=== PATIENT | male | born 1965 | race Caucasian/White ===

== ENCOUNTER 2017-11-13 17:57 | Inpatient (IN) ==
[2017-11-13] MEDS ORDERED: Bacitracin OINT PKT TP STA (18:18)
--- NOTE | 2017-11-13 18:27 | Emergency Department Note ---
Disposition Clinical Impression: Ulcer, Methamphetamine abuse, Medical clearance for psychiatric admission Disposition: Still a Patient Condition: Undetermined Referrals: Jamey Duffy MD [Primary Care Provider] - Forms: ED Satisfaction Letter General Adult HPI - General Chief complaint: ED Wound/Laceration Stated complaint: "bugs in arms/neck" Time Seen by Provider: 11/13/17 18:07 Source: patient Mode of arrival: ambulatory Limitations: altered mental status Nursing Notes Reviewed: Yes Vital Signs Reviewed: Yes - History of Present Illness HPI Narrative: 52-year-old male with history of previous psychiatric disorders and admission to psychiatric services, arrives to the emergency department complaining of wounds of bilateral arms and hands. The patient has been stating that he has smoked methamphetamines 2 days ago. The patient is been picking at bilateral upper surety since then. He is source of bilateral arms associated with this. He is stating that bugs are coming out of his arms. Patient denies any other complaints at this time include chest pain, difficulty breathing, suicidal ideation. He is resting comfortably in the room but is fairly and see in the room and is restless. Pain Scale: 0 - Related Data Home Medications Medication Instructions Recorded Confirmed Pregabalin [Lyrica] 50 mg PO TID 03/11/16 08/20/16 Cyclobenzaprine HCl 10 mg PO BID 08/20/16 08/20/16 Furosemide [Lasix] 20 mg PO DAILY 08/20/16 08/20/16 Gabapentin [Neurontin] 400 mg PO TID 08/20/16 08/20/16 HYDROcodone/Acet 5/325 mg [[place] 1 tab PO Q8H PRN 08/20/16 08/20/16 5-325 mg] Nicotine Patch [Nicoderm] 21 mg TD DAILY 08/20/16 08/20/16 Previous Rx's Medication Instructions Recorded OxyCODONE Immed Rel [Roxicodone 5 5 mg PO Q4HR PRN #60 tablet 08/21/16 MG] Allergies Allergy/AdvReac Type Severity Reaction Status Date / Time No Known Allergies Allergy Verified 08/20/16 09:49 All systems ED: reviewed and negative except as stated. Constitutional: Denies: fever, chills, weakness ENT ED: Denies: congestion Cardiovascular: Denies: chest pain Respiratory: Denies: dyspnea Gastrointestinal: Denies: abdominal pain Genitourinary: Denies: urgency, dysuria Musculoskeletal: Denies: back pain Integumentary: Reports: lesions. Denies: rash Neurological: Denies: headache Psychiatric: Reports: visual hallucinations. Denies: anxiety, depression, suicidal thoughts, homicidal thoughts, auditory hallucinations Past Medical History - Past Medical History Attestation: Yes The following information was validated with the patient. Source: patient Medical history: Reports: migraine Surgical history: Reports: orthopedic, other Psychiatric history: Reports: anxiety, depression, prior suicide attempt, previous psychiatric hospitalization - Social History Smoking Status: Former smoker Smokeless Tobacco Status: No Alcohol use: Reports: rarely Drug use: Reports: methamphetamine, prescription drug abuse Physical Exam - General Limitations: no limitations General appearance: alert, in no apparent distress, anxious - Head Head exam: atraumatic, normocephalic, normal inspection - Eye Eye exam: Present: normal appearance, PERRL, EOMI - ENT ENT exam: normal exam, normal oropharynx, mucous membranes moist - Neck Neck exam: Present: normal inspection, full ROM, trachea midline - Chest Chest inspection: Present: normal inspection, symmetric chest wall rise - Respiratory Respiratory exam: Present: normal lung sounds bilaterally - Cardiovascular Cardiovascular exam: Present: regular rate, normal rhythm, normal heart sounds - Abdominal Exam Abdominal exam: Present: soft, Non-Tender. Absent: tenderness, distention, guarding, rebound, rigidity - Extremities Exam Extremities exam: Present: full ROM, other (Patient has superficial lesions from what appears to be the patient picking at bilateral upper extremities. No active bleeding. No obvious signs of infection.). Absent: tenderness - Neurological Exam Neurological exam: Present: alert, oriented X3 - Psychiatric Psychiatric exam: Present: anxious, manic. Absent: normal affect, normal mood, depressed, homicidal ideation, suicidal ideation - Skin Skin exam: Present: warm, dry, normal color Course Vital Signs Temperature 97.9 F 11/13/17 17:59 Pulse Rate 88 11/13/17 17:59 Respiratory Rate 18 11/13/17 17:59 Blood Pressure 204/145 11/13/17 17:59 O2 Sat by Pulse Oximetry 96 11/13/17 17:59 Temperature 97.9 F 11/13/17 17:59 Pulse Rate 88 11/13/17 17:59 Respiratory Rate 18 11/13/17 17:59 Blood Pressure 204/145 11/13/17 17:59 O2 Sat by Pulse Oximetry 96 11/13/17 17:59 Oxygen Delivery Oxygen Delivery Room Air
--- NOTE | 2017-11-13 18:39 | Emergency Department Note ---
Disposition Clinical Impression: Ulcer, Methamphetamine abuse, Medical clearance for psychiatric admission Disposition: Still a Patient Condition: Undetermined Referrals: Jamey Duffy MD [Primary Care Provider] - Forms: ED Satisfaction Letter General Adult HPI - General Chief complaint: ED Wound/Laceration Stated complaint: "bugs in arms/neck" Time Seen by Provider: 11/13/17 18:07 Source: patient Mode of arrival: ambulatory Limitations: no limitations - History of Present Illness Pain Scale: 0 - Related Data Home Medications Medication Instructions Recorded Confirmed Pregabalin [Lyrica] 50 mg PO TID 03/11/16 08/20/16 Cyclobenzaprine HCl 10 mg PO BID 08/20/16 08/20/16 Furosemide [Lasix] 20 mg PO DAILY 08/20/16 08/20/16 Gabapentin [Neurontin] 400 mg PO TID 08/20/16 08/20/16 HYDROcodone/Acet 5/325 mg [[place] 1 tab PO Q8H PRN 08/20/16 08/20/16 5-325 mg] Nicotine Patch [Nicoderm] 21 mg TD DAILY 08/20/16 08/20/16 Previous Rx's Medication Instructions Recorded OxyCODONE Immed Rel [Roxicodone 5 5 mg PO Q4HR PRN #60 tablet 08/21/16 MG] Allergies Allergy/AdvReac Type Severity Reaction Status Date / Time No Known Allergies Allergy Verified 08/20/16 09:49 Constitutional: Denies: fever, chills, weakness ENT ED: Denies: congestion Cardiovascular: Denies: chest pain Respiratory: Denies: dyspnea Gastrointestinal: Denies: abdominal pain Genitourinary: Denies: urgency, dysuria Musculoskeletal: Denies: back pain Integumentary: Reports: lesions. Denies: rash Neurological: Denies: headache Psychiatric: Reports: visual hallucinations. Denies: anxiety, depression, suicidal thoughts, homicidal thoughts, auditory hallucinations Past Medical History - Past Medical History Medical history: Reports: migraine Surgical history: Reports: orthopedic, other Psychiatric history: Reports: anxiety, depression, prior suicide attempt, previous psychiatric hospitalization - Social History Smoking Status: Former smoker Smokeless Tobacco Status: No Alcohol use: Reports: rarely Drug use: Reports: methamphetamine, prescription drug abuse Physical Exam - General Limitations: no limitations General appearance: alert, in no apparent distress, anxious Course Vital Signs Temperature 97.9 F 11/13/17 17:59 Pulse Rate 88 11/13/17 17:59 Respiratory Rate 18 11/13/17 17:59 Blood Pressure 204/145 11/13/17 17:59 O2 Sat by Pulse Oximetry 96 11/13/17 17:59 Temperature 97.9 F 11/13/17 17:59 Pulse Rate 88 11/13/17 17:59 Respiratory Rate 18 11/13/17 17:59 Blood Pressure 204/145 11/13/17 17:59 O2 Sat by Pulse Oximetry 96 11/13/17 17:59 Oxygen Delivery Oxygen Delivery Room Air Medical Decision Making - Lab Data Result diagrams: 11/13/17 18:31 Lab Results 11/13/17 Range/Units 18:31 WBC 9.8 (4.3-11.1) K/mcL RBC 4.35 (4.19-5.50) M/mcL Hgb 14.2 (12.9-16.9) g/dL Hct 41.7 (37.5-50.1) % MCV 95.9 (83.0-100.0) fL MCH 32.6 (28.0-33.3) pg MCHC 34.1 (31.6-35.5) g/dL RDW 12.8 (11.5-14.5) % Plt Count 322 (140-400) K/mcL MPV 9.1 L (9.4-12.4) fL Immature Gran % 0.4 (0-4) % Seg Neutrophils % 61.2 % Lymphocytes % 23.4 % Monocytes % 12.2 % Eosinophils % 2.4 % Basophils % 0.4 % Neutrophils # 6.0 (1.6-8.9) K/mcL Lymphocytes # 2.3 (0.6-4.6) K/mcL Monocytes # 1.2 (0.0-1.3) K/mcL Eosinophils # 0.2 (0.0-0.6) K/mcL Basophils # 0.0 (0.0-0.2) K/mcL Attestation Statement - Attestation Attestation: I examined this patient and my medical decision-making was reviewed with the DECISION SCIENCE ANALYST/PA/Advanced Practice Nurse/Resident Physician. I agree with the documented findings, disposition and treatment plan as described except to the extent set forth below. Patient is resting comfortably on the bed, speaking conversationally, initial blood pressure elevated and will be rechecked, patient does admit to smoking methamphetamine several days ago. Has been picking his skin but I do not see signs of abscess at this time. Labs are pending. Care will be assumed by the night physician. 183
[2017-11-13 18:50] LABS: Basophils % 0.4 %; Eosinophils # 0.2 K/mcL (0.0-0.6); Eosinophils % 2.4 %; Hematocrit 41.7 % (37.5-50.1); Hemoglobin 14.2 g/dL (12.9-16.9); Immature Granulocytes % 0.4 % (0-4); Lymphocytes # 2.3 K/mcL (0.6-4.6); Lymphocytes % 23.4 %; Mean Corpuscular HGB Conc 34.1 g/dL (31.6-35.5); Mean Corpuscular Hemoglobin 32.6 pg (28.0-33.3); Mean Corpuscular Volume 95.9 fL (83.0-100.0); Mean Platelet Volume 9.1 fL (9.4-12.4); Monocytes # 1.2 K/mcL (0.0-1.3); Monocytes % 12.2 %; Platelet Count 322 K/mcL (140-400); Red Blood Count 4.35 M/mcL (4.19-5.50); Red Cell Distribution Width 12.8 % (11.5-14.5); Segmented Neutrophils % 61.2 %
[2017-11-13] MEDS ORDERED: hydrALAZINE 10 MG TABLET PO ONE (19:03)
[2017-11-13 19:12] LABS: Acetaminophen < 10 mcg/mL (10-20); BUN/Creatinine Ratio 17 (6-26); Blood Urea Nitrogen 15 mg/dL (6-20); Calcium 9.5 mg/dL (8.6-10.3); Carbon Dioxide 26 mEq/L (23-29); Chloride 103 mEq/L (98-107); Ethanol < 10 mg/dL (Less than 10); Glucose 103 mg/dL (70-105); Osmolality,Calculated 287 (280-300); Potassium 3.5 mEq/L (3.5-5.1); Salicylate < 2.5 mg/dL (15.0-30.0); Sodium 138 mEq/L (136-145); eGFR For African Americans > 60 (> 60); eGFR For Non-African Americans > 60 (> 60)
--- NOTE | 2017-11-13 19:29 | Emergency Department Note ---
Disposition Clinical Impression: Ulcer, Methamphetamine abuse, Medical clearance for psychiatric admission Disposition: Still a Patient Condition: Undetermined Referrals: Jamey Duffy MD [Primary Care Provider] - Forms: ED Satisfaction Letter General Adult HPI - General Chief complaint: ED Wound/Laceration Stated complaint: "bugs in arms/neck" Time Seen by Provider: 11/13/17 18:07 Source: patient Mode of arrival: ambulatory Limitations: no limitations - History of Present Illness Pain Scale: 0 - Related Data Home Medications Medication Instructions Recorded Confirmed Pregabalin [Lyrica] 50 mg PO TID 03/11/16 08/20/16 Cyclobenzaprine HCl 10 mg PO BID 08/20/16 08/20/16 Furosemide [Lasix] 20 mg PO DAILY 08/20/16 08/20/16 Gabapentin [Neurontin] 400 mg PO TID 08/20/16 08/20/16 HYDROcodone/Acet 5/325 mg [[place] 1 tab PO Q8H PRN 08/20/16 08/20/16 5-325 mg] Nicotine Patch [Nicoderm] 21 mg TD DAILY 08/20/16 08/20/16 Previous Rx's Medication Instructions Recorded OxyCODONE Immed Rel [Roxicodone 5 5 mg PO Q4HR PRN #60 tablet 08/21/16 MG] Allergies Allergy/AdvReac Type Severity Reaction Status Date / Time No Known Allergies Allergy Verified 08/20/16 09:49 Constitutional: Denies: fever, chills, weakness ENT ED: Denies: congestion Cardiovascular: Denies: chest pain Respiratory: Denies: dyspnea Gastrointestinal: Denies: abdominal pain Genitourinary: Denies: urgency, dysuria Musculoskeletal: Denies: back pain Integumentary: Reports: lesions. Denies: rash Neurological: Denies: headache Psychiatric: Reports: visual hallucinations. Denies: anxiety, depression, suicidal thoughts, homicidal thoughts, auditory hallucinations Past Medical History - Past Medical History Medical history: Reports: migraine Surgical history: Reports: orthopedic, other Psychiatric history: Reports: anxiety, depression, prior suicide attempt, previous psychiatric hospitalization - Social History Smoking Status: Former smoker Smokeless Tobacco Status: No Alcohol use: Reports: rarely Drug use: Reports: methamphetamine, prescription drug abuse Physical Exam - General Limitations: no limitations General appearance: alert, in no apparent distress, anxious Course - Reevaluation(s) Reevaluation #1: Attestation note I examined this patient and my medical decision-making was reviewed with the emergency medicine resident. I agree with the documented findings, disposition and treatment plan as described except to the extent set forth below. Patient seen with emergency medicine resident Chris Cobb, Please see a copy of his note for details of the H&P, ED evaluation, management and disposition. I have independently evaluated the patient and confirmed appropriate portions of the history and physical exam. Briefly: Patient initially seen by the daytime ED team of Dr. Dimas in color. Please see copy of his note for details of that portion of the H&P management and evaluation. Patient was signed out at 7 PM. Patient was admitted to methamphetamine abuse is "seeing bugs in the skin and is acting with some psychotic features. Patient does have elevated blood pressure systolic of 160 elbow is asymptomatic we will give him some oral hydralazine patient still needs his urine drug screen we will then contact 1A consult on by mental health services at [facility] and able disposition accordingly. Patient is resting comfortably at this time. Disposition pending Time: 19:27 Vital Signs Temperature 97.9 F 11/13/17 17:59 Pulse Rate 88 11/13/17 17:59 Respiratory Rate 18 11/13/17 17:59 Blood Pressure 204/145 11/13/17 17:59 O2 Sat by Pulse Oximetry 96 11/13/17 17:59 Temperature 97.9 F 11/13/17 18:55 Pulse Rate 90 11/13/17 19:00 Respiratory Rate 20 11/13/17 19:00 Blood Pressure 160/125 11/13/17 19:00 O2 Sat by Pulse Oximetry 98 11/13/17 19:00 Oxygen Delivery Oxygen Delivery Room Air Medical Decision Making - Lab Data Result diagrams: 11/13/17 18:31 11/13/17 18:31 Lab Results 11/13/17 11/13/17 Range/Units 18:31 18:31 WBC 9.8 (4.3-11.1) K/mcL RBC 4.35 (4.19-5.50) M/mcL Hgb 14.2 (12.9-16.9) g/dL Hct 41.7 (37.5-50.1) % MCV 95.9 (83.0-100.0) fL MCH 32.6 (28.0-33.3) pg MCHC 34.1 (31.6-35.5) g/dL RDW 12.8 (11.5-14.5) % Plt Count 322 (140-400) K/mcL MPV 9.1 L (9.4-12.4) fL Immature Gran % 0.4 (0-4) % Seg Neutrophils % 61.2 % Lymphocytes % 23.4 % Monocytes % 12.2 % Eosinophils % 2.4 % Basophils % 0.4 % Neutrophils # 6.0 (1.6-8.9) K/mcL Lymphocytes # 2.3 (0.6-4.6) K/mcL Monocytes # 1.2 (0.0-1.3) K/mcL Eosinophils # 0.2 (0.0-0.6) K/mcL Basophils # 0.0 (0.0-0.2) K/mcL Sodium 138 (136-145) mEq/L Potassium 3.5 (3.5-5.1) mEq/L Chloride 103 (98-107) mEq/L Carbon Dioxide 26 (23-29) mEq/L BUN 15 (6-20) mg/dL Creatinine 0.89 (0.70-1.30) mg/dL Est GFR ( Amer) > 60 (> 60) Est GFR (Non-Af Amer) > 60 (> 60) BUN/Creatinine Ratio 17 (6-26) Glucose 103 (70-105) mg/dL Calculated Osmolality 287 (280-300) Calcium 9.5 (8.6-10.3) mg/dL Salicylates < 2.5 L (15.0-30.0) mg/dL Acetaminophen < 10 L (10-20) mcg/mL Ethyl Alcohol < 10 (Less than 10) mg/dL
[2017-11-13 20:58] LABS: Bilirubin,Urine Small (Negative); Blood,Urine Negative (Negative); Clarity,Urine Clear (Clear); Color,Urine Dark Yellow (Yellow); Glucose,Urine (UA) Normal (Normal); Ketones,Urine Trace mg/dL (Negative); Leukocyte Esterase,Urine Negative (Negative); Nitrite,Urine Negative (Negative); Protein,Urine Trace mg/dL (Neg-Trace); Specific Gravity,Urine 1.027 (1.010-1.025); Urobilinogen,Urine Normal (Normal)
[2017-11-13 21:00] LABS: Bacteria,Urine None Seen per hpf (None-Few); Hyaline Casts,Urine None Seen per lpf (None-Few); RBC,Urine 0-3 per hpf (0-3); Squamous Epithelial Cell,Urine Moderate per lpf (None-Few); WBC,Urine 0-3 per hpf (0-3)
[2017-11-13 21:23] LABS: Amphetamine Screen,Urine Positive ng/mL (Cutoff=1000); Barbiturate Screen,Urine Negative ng/mL (Cutoff=200); Benzodiazepines Screen,Urine Negative ng/mL (Cutoff=200); Cannabinoid Screen,Urine Negative ng/mL (Cutoff = 50); Cocaine Screen,Urine Positive ng/mL (Cutoff= 300); Opiate Screen,Urine Positive ng/mL (Cutoff=300); Phencyclidine Screen,Urine Negative ng/mL (Cutoff=25)
--- NOTE | 2017-11-13 22:46 | Emergency Department Note ---
Disposition Clinical Impression: Ulcer, Methamphetamine abuse, Medical clearance for psychiatric admission Disposition: Still a Patient Condition: Fair Time of Disposition: 06:05 General Adult HPI - General Chief complaint: ED Wound/Laceration Stated complaint: "bugs in arms/neck" Time Seen by Provider: 11/13/17 18:07 Source: patient Mode of arrival: ambulatory Limitations: no limitations Nursing Notes Reviewed: Yes Vital Signs Reviewed: Yes - History of Present Illness HPI Narrative: Patient received on sign out from the day team, Dr. Burnett and Wing with medical clearance in progress. Mr. Tinajero is a 52-year-old gentleman presenting for concerns of bugs crawled out of his skin. He shows pictures on the phone and shows several spots on his arms where they are getting ready to come out. Is a history of psychiatric disorder including history of suicidality with prior psychiatric admissions. He admits to history of drug and alcohol problems. He smokes methamphetamine 2 days ago. He has no other complaints. Patient denies suicidality or homicidality. ROS: Positive: As above Negative: Fever, chills, nausea, vomiting, chest pain, palpitations, dyspnea, diaphoresis, cough, abdominal pain, usual back pain Pain Scale: 0 - Related Data Home Medications Medication Instructions Recorded Confirmed Pregabalin [Lyrica] 50 mg PO TID 03/11/16 11/13/17 Cyclobenzaprine HCl 10 mg PO BID 08/20/16 11/13/17 Furosemide [Lasix] 20 mg PO DAILY 08/20/16 11/13/17 Gabapentin [Neurontin] 400 mg PO TID 08/20/16 11/13/17 HYDROcodone/Acet 5/325 mg [[place] 1 tab PO Q8H PRN 08/20/16 11/13/17 5-325 mg] Nicotine Patch [Nicoderm] 21 mg TD DAILY 08/20/16 11/13/17 Previous Rx's Medication Instructions Recorded OxyCODONE Immed Rel [Roxicodone 5 5 mg PO Q4HR PRN #60 tablet 08/21/16 MG] Allergies Allergy/AdvReac Type Severity Reaction Status Date / Time No Known Allergies Allergy Verified 08/20/16 09:49 All systems ED: reviewed and negative except as stated. Review of Systems: As Per HPI Constitutional: Denies: fever, chills, weakness ENT ED: Denies: congestion Cardiovascular: Denies: chest pain Respiratory: Denies: dyspnea Gastrointestinal: Denies: abdominal pain Genitourinary: Denies: urgency, dysuria Musculoskeletal: Denies: back pain Integumentary: Reports: lesions. Denies: rash Neurological: Denies: headache Psychiatric: Reports: visual hallucinations. Denies: anxiety, depression, suicidal thoughts, homicidal thoughts, auditory hallucinations Past Medical History - Past Medical History Medical history: Reports: migraine Surgical history: Reports: orthopedic, other Psychiatric history: Reports: anxiety, depression, prior suicide attempt, previous psychiatric hospitalization - Social History Smoking Status: Former smoker Smokeless Tobacco Status: No Alcohol use: Reports: rarely Drug use: Reports: methamphetamine, prescription drug abuse Physical Exam Vital Signs Reviewed General: Patient is alert, oriented, and in no acute distress. Head: atraumatic, normocephalic Eye: normal appearance, no scleral icterus, no conjunctival injection ENT: mucous membranes moist, normal external ear exam Neck: normal inspection, trachea midline, full ROM Chest: normal inspection, symmetric chest rise Respiratory: Good respiratory effort. Bilateral breath sounds are clear without wheezing, crackles, or rhonchi. Cardiovascular: Regular rate and rhythm. No clicks, rubs, gallops, or murmors. Normal heart sounds. Abdomen: Bowel sounds present normoactive x-4 quadrants. Abdomen is soft, nondistended, and nontender. No guarding or rebound. No organomegaly noted. Musculoskeletal: Spontaneously moving all extremities. Skin: warm, dry. Bilateral upper extremities on the distal forearms have areas of skin that has superficial excoriations consistent with picking. No visual evidence of any insects. Neuro: Alert and oriented x4. Sensation light touch intact. Psych: Patient's affect is appropriate for situation. - General Limitations: no limitations General appearance: alert, in no apparent distress, anxious Course Course Narrative: Patient denies suicidality or homicidality. Clinically, he does not appear to be psychotic. He is picking at his skin and shows areas where the insects are about to erupt. He shows an insect that he is caught in a bottle where they are , "making babies." There is nothing in this container. Physical exam is unremarkable. Medical workup is remarkable for positive urine drug screen for amphetamines, cocaine, and opiates. Mental health services evaluated the patient and recommends admission to their service. Patient continues to do well and continues to be compliant and agreeable. He continues to pick "bugs" on the skin. Vital Signs Temperature 97.9 F 11/13/17 17:59 Pulse Rate 88 11/13/17 17:59 Respiratory Rate 18 11/13/17 17:59 Blood Pressure 204/145 11/13/17 17:59 O2 Sat by Pulse Oximetry 96 11/13/17 17:59 Temperature 98.2 F 11/14/17 02:09 Pulse Rate 80 11/14/17 02:09 Respiratory Rate 20 11/14/17 02:09 Blood Pressure 132/88 11/14/17 02:09 O2 Sat by Pulse Oximetry 98 11/13/17 19:00 Oxygen Delivery Oxygen Delivery Room Air Medical Decision Making - Lab Data Result diagrams: 11/13/17 18:31 11/13/17 18:31 Lab Results 11/13/17 11/13/17 11/13/17 Range/Units 18:31 18:31 20:50 WBC 9.8 (4.3-11.1) K/mcL RBC 4.35 (4.19-5.50) M/mcL Hgb 14.2 (12.9-16.9) g/dL Hct 41.7 (37.5-50.1) % MCV 95.9 (83.0-100.0) fL MCH 32.6 (28.0-33.3) pg MCHC 34.1 (31.6-35.5) g/dL RDW 12.8 (11.5-14.5) % Plt Count 322 (140-400) K/mcL MPV 9.1 L (9.4-12.4) fL Immature Gran % 0.4 (0-4) % Seg Neutrophils % 61.2 % Lymphocytes % 23.4 % Monocytes % 12.2 % Eosinophils % 2.4 % Basophils % 0.4 % Neutrophils # 6.0 (1.6-8.9) K/mcL Lymphocytes # 2.3 (0.6-4.6) K/mcL Monocytes # 1.2 (0.0-1.3) K/mcL Eosinophils # 0.2 (0.0-0.6) K/mcL Basophils # 0.0 (0.0-0.2) K/mcL Sodium 138 (136-145) mEq/L Potassium 3.5 (3.5-5.1) mEq/L Chloride 103 (98-107) mEq/L Carbon Dioxide 26 (23-29) mEq/L BUN 15 (6-20) mg/dL Creatinine 0.89 (0.70-1.30) mg/dL Est GFR ( Amer) > 60 (> 60) Est GFR (Non-Af Amer) > 60 (> 60) BUN/Creatinine Ratio 17 (6-26) Glucose 103 (70-105) mg/dL Calculated Osmolality 287 (280-300) Calcium 9.5 (8.6-10.3) mg/dL Urine Color Dark Yellow (Yellow) Urine Clarity Clear (Clear) Urine pH 6.0 (5.0-8.0) pH Units Ur Specific Abbott 1.027 H (1.010-1.025) Urine Protein Trace (Neg-Trace) mg/dL Urine Glucose (UA) Normal (Normal) mg/dL Urine Ketones Trace H (Negative) mg/dL Urine Blood Negative (Negative) Urine Nitrite Negative (Negative) Urine Bilirubin Small H (Negative) Urine Urobilinogen Normal (Normal) mg/dL Ur Leukocyte Esterase Negative (Negative) Urine Microscopic RBC 0-3 (0-3) per hpf Urine Microscopic WBC 0-3 (0-3) per hpf Ur Squamous Epith Cells Moderate H (None-Few) per lpf Urine Bacteria None Seen (None-Few) per hpf Hyaline Casts None Seen (None-Few) per lpf Salicylates < 2.5 L (15.0-30.0) mg/dL Urine Opiates Screen (Ebneff=969) ng/mL Acetaminophen < 10 L (10-20) mcg/mL Ur Barbiturates Screen (Htzkgh=776) ng/mL Ur Phencyclidine Scrn (Cutoff=25) ng/mL Ur Amphetamines Screen (Hekzrs=2054) ng/mL U Benzodiazepines Scrn (Esybfq=898) ng/mL Urine Cocaine Screen (Cutoff= 300) ng/mL U Marijuana (THC) Screen (Cutoff = 50) ng/mL Ethyl Alcohol < 10 (Less than 10) mg/dL 11/13/17 Range/Units 20:50 WBC (4.3-11.1) K/mcL RBC (4.19-5.50) M/mcL Hgb (12.9-16.9) g/dL Hct (37.5-50.1) % MCV (83.0-100.0) fL MCH (28.0-33.3) pg MCHC (31.6-35.5) g/dL RDW (11.5-14.5) % Plt Count (140-400) K/mcL MPV (9.4-12.4) fL Immature Gran % (0-4) % Seg Neutrophils % % Lymphocytes % % Monocytes % % Eosinophils % % Basophils % % Neutrophils # (1.6-8.9) K/mcL Lymphocytes # (0.6-4.6) K/mcL Monocytes # (0.0-1.3) K/mcL Eosinophils # (0.0-0.6) K/mcL Basophils # (0.0-0.2) K/mcL Sodium (136-145) mEq/L Potassium (3.5-5.1) mEq/L Chloride (98-107) mEq/L Carbon Dioxide (23-29) mEq/L BUN (6-20) mg/dL Creatinine (0.70-1.30) mg/dL Est GFR ( Amer) (> 60) Est GFR (Non-Af Amer) (> 60) BUN/Creatinine Ratio (6-26) Glucose (70-105) mg/dL Calculated Osmolality (280-300) Calcium (8.6-10.3) mg/dL Urine Color (Yellow) Urine Clarity (Clear) Urine pH (5.0-8.0) pH Units Ur Specific Abbott (1.010-1.025) Urine Protein (Neg-Trace) mg/dL Urine Glucose (UA) (Normal) mg/dL Urine Ketones (Negative) mg/dL Urine Blood (Negative) Urine Nitrite (Negative) Urine Bilirubin (Negative) Urine Urobilinogen (Normal) mg/dL Ur Leukocyte Esterase (Negative) Urine Microscopic RBC (0-3) per hpf Urine Microscopic WBC (0-3) per hpf Ur Squamous Epith Cells (None-Few) per lpf Urine Bacteria (None-Few) per hpf Hyaline Casts (None-Few) per lpf Salicylates (15.0-30.0) mg/dL Urine Opiates Screen Positive H (Ycmdbh=582) ng/mL Acetaminophen (10-20) mcg/mL Ur Barbiturates Screen Negative (Hqovwb=372) ng/mL Ur Phencyclidine Scrn Negative (Cutoff=25) ng/mL Ur Amphetamines Screen Positive H (Ocruor=0603) ng/mL U Benzodiazepines Scrn Negative (Igddhw=688) ng/mL Urine Cocaine Screen Positive H (Cutoff= 300) ng/mL U Marijuana (THC) Screen Negative (Cutoff = 50) ng/mL Ethyl Alcohol (Less than 10) mg/dL
[2017-11-14] MEDS ORDERED: *HR* LORazepam 1 MG TABLET PO ONE (00:20)
[2017-11-14] MEDS ORDERED: *HR* LORazepam 2 MG/ML VIAL IM PRN (00:43)
[2017-11-14] MEDS ORDERED: MOM Conc 10 ML UD.LIQ PO PRN (00:43)
[2017-11-14] MEDS ORDERED: Acetaminophen 325 MG TABLET PO PRN (00:43)
[2017-11-14] MEDS ORDERED: Haloperidol Lactate 5 MG/ML VIAL IM PRN (00:43)
[2017-11-14] MEDS ORDERED: *HR* LORazepam 1 MG TABLET PO PRN (00:43)
[2017-11-14] MEDS ORDERED: Mag Hydrox/Al Hydrox/Simeth 30 ML UDC PO PRN (00:43)
[2017-11-14] MEDS ORDERED: Ondansetron ODT 4 MG TAB.RAPDIS SL PRN (00:49)
[2017-11-14] MEDS ORDERED: Baclofen 10 MG TABLET PO PRN (00:53)
[2017-11-14] MEDS ORDERED: Ibuprofen 400 MG TABLET PO PRN (02:12)
[2017-11-14] MEDS: hydrOXYzine pamoate 25 MG CAPSULE PO PRN (16:54)
[2017-11-14] MEDS: Nicotine 21 MG PATCH.TD24 TD SCH (16:54)
--- NOTE | 2017-11-14 18:04 | Psychiatry History & Physical ---
Date of Encounter: 11/14/17 Time of Encounter: 18:00 History of Present Illness Patient Stated Chief Complaint: I see bugs, I told that ara over there Medicare Admission Attestation: For traditional Medicare patients the provided hospital inpatient services are reasonable and necessary and in the case of services not specified as inpatient -only under 42 CFR 419.22 (n), that they are appropriately provided as inpatient services in accordance 42 CFR 412.3. For Critical Access Hospital the patient may reasonably be expected to be discharged or transferred to a hospital within 96 hours after admission to the Critical Access Hospital. Admitted From: Emergency Dept Plans for Post Hospital Care: Home History of Present Illness: Mr. Tinajero is a 52 year old male The patient has been seen previously on this unit. 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 He was also diagnosed with major depressive disorder although he did not have ongoing psychosis. The patient reports suicidal ideation at this time. He reports that he has a chronic pain condition from cervicalgia and a plate in his neck. He said that the medicines for his depression were not working. He was followed by [facility] but in the past 24-48 hours may have used cocaine and certainly used methamphetamine. He was seen last night he was picking at his skin he had the idea that there are bugs he talked about bugs and psychiatric containers. Today he is seen and he gives some history and some background is not able to provide a full history. Therefore we had to rely on the chart. The patient says that he lives with his mother in [place] any seeking disability. We also looked at the state pharmacy report shows he is on gabapentin 800 mg 3 times a day. Past Med Surg Social Fam HX - Past Medical History Source: old records reviewed Medical history: migraine - Past Psychiatric History Psychiatric history: Reports: depression Family psychiatric history: Unknown Family History of Suicide: Unknown - Past Surgical History Surgical History: orthopedic, other - Social History Smoking Status: Former smoker Smokeless Tobacco Status: No Alcohol use: rarely Drug use: methamphetamine, prescription drug abuse Occupational status: disabled Current living situation: Home - Independent Activity Level: Independent ambulation Recent Out of Country Travel Within the Last 8 Weeks: No Exposure or Possible Exposure to Illness During Travel: No - Family History Mother Living Status: Still Living Hx Family Cardiac Disorders: No Hx Family Respiratory Disorders: No Hx Family Cancer: No Hx Family GI Disorders: No Hx Family Endocrine Disorder: Yes (DM) Hx Family Neuromuscular Disorders: No Hx Family Neurologic Disorders: No Hx Family HEENT Disorders: No Hx Family Autoimmune Disorders: No Medications & Allergies Amitriptyline [Elavil] 25 mg PO HS 11/14/17 [History] Gabapentin [Neurontin] 800 mg PO TID 11/14/17 [History] HydrOXYzine Pamoate [Vistaril] 50 mg PO TID PRN 11/14/17 [History] Loxapine Succinate [Loxapine] 10 mg PO BID 11/14/17 [History] Trazodone HCl 150 - 300 mg PO HS 11/14/17 [History] cloNIDine HCl [CloNIDine HCl] 0.1 mg PO BID 11/14/17 [History] 3 Allergy/AdvReac Type Severity Reaction Status Date / Time No Known Allergies Allergy Verified 08/20/16 09:49 Review of Systems Musculoskeletal: Reports: back pain Integumentary: Reports: pruritus Psychiatric: Reports: suicidal ideation, change in appetite, auditory hallucinations, visual hallucinations Exam - HEENT Head exam IM: Present: atraumatic, normocephalic Eye exam IM: Present: EOMI ENT exam IM: Present: mucous membranes dry - Neurological Neurological exam: Present: CN II-XII intact - Respiratory Respiratory exam IM: Present: accessory muscle use - GI/Abdominal GI/Abdominal exam IM: Present: normal bowel sounds - Extremities Extremities exam IM: Present: warm - Skin Skin exam IM: Present: abrasion, rash, urticaria - Constitutional Vitals: Temp Pulse Resp BP Pulse Ox 97.7 F 74 18 121/88 98 11/14/17 09:00 11/14/17 09:00 11/14/17 09:00 11/14/17 09:00 11/13/17 19:00 General appearance: age & developmentally appropriate, thin - Musculoskeletal Gait: brisk Station: bizarre mannerisms Strength & Tone: abnormal extension, abnormal flexion - Psychiatric Patient Orientation: Yes Person, Yes Place, Yes Circumstance Level of alertness: Alert Behavior: anxious Psychomotor activity: Repetitive movements Eye Contact: Minimal Contact Mood Description: Depressed Affect description: anxious Speech Volume: Whispering Speech pattern: normal rate Language & Vocabulary: limited Thought Process: Thought Blocking Thought Content: Yes Suicidal ideation, Yes Somatic delusion, Yes Phobic Perceptual Disturbances: Yes Reacting to internal stimuli, Yes Auditory hallucinations, Yes Visual hallucinations, Yes Tactile hallucinations Attention Span Ability: Unable to Sustain Attention Memory Description: Immediate Impaired, Recent Impaired, Remote Impaired Patient Reliability: Not Reliable Historian Fund of knowledge: Yes average Intelligence Estimate: Average Judgment: Poor Insight: None Results - Labs Labs: Laboratory Last Values WBC 9.8 K/mcL (4.3-11.1) 11/13/17 18:31 RBC 4.35 M/mcL (4.19-5.50) 11/13/17 18:31 Hgb 14.2 g/dL (12.9-16.9) 11/13/17 18:31 Hct 41.7 % (37.5-50.1) 11/13/17 18: MCV 95.9 fL (83.0-100.0) 11/13/17 18: MCH 32.6 pg (28.0-33.3) 11/13/17 18: MCHC 34.1 g/dL (31.6-35.5) 11/13/17 18: RDW 12.8 % (11.5-14.5) 11/13/17 18:31 Plt Count 322 K/mcL (140-400) 11/13/17 18:31 MPV 9.1 fL (9.4-12.4) L 11/13/17 18: Immature Gran % 0.4 % (0-4) 11/13/17 18: Seg Neutrophils % 61.2 % 11/13/17 18:31 Lymphocytes % 23.4 % 11/13/17 18:31 Monocytes % 12.2 % 11/13/17 18:31 Eosinophils % 2.4 % 11/13/17 18: Basophils % 0.4 % 11/13/17 18:31 Neutrophils # 6.0 K/mcL (1.6-8.9) 11/13/17 18: Lymphocytes # 2.3 K/mcL (0.6-4.6) 11/13/17 18: Monocytes # 1.2 K/mcL (0.0-1.3) 11/13/17 18: Eosinophils # 0.2 K/mcL (0.0-0.6) 11/13/17 18: Basophils # 0.0 K/mcL (0.0-0.2) 11/13/17 18:31 Sodium 138 mEq/L (136-145) 11/13/17 18:31 Potassium 3.5 mEq/L (3.5-5.1) 11/13/17 18:31 Chloride 103 mEq/L (98-107) 11/13/17 18:31 Carbon Dioxide 26 mEq/L (23-29) 11/13/17 18:31 BUN 15 mg/dL (6-20) 11/13/17 18:31 Creatinine 0.89 mg/dL (0.70-1.30) 11/13/17 18:31 Est GFR ( Amer) > 60 (> 60) 11/13/17 18:31 Est GFR (Non-Af Amer) > 60 (> 60) 11/13/17 18:31 BUN/Creatinine Ratio 17 (6-26) 11/13/17 18:31 Glucose 103 mg/dL (70-105) 11/13/17 18:31 Calculated Osmolality 287 (280-300) 11/13/17 18: Calcium 9.5 mg/dL (8.6-10.3) 11/13/17 18:31 Urine Color Dark Yellow (Yellow) 11/13/17 20:50 Urine Clarity Clear (Clear) 11/13/17 20:50 Urine pH 6.0 pH Units (5.0-8.0) 11/13/17 20:50 Ur Specific [place] 1.027 (1.010-1.025) H 11/13/17 20:50 Urine Protein Trace mg/dL (Neg-Trace) 11/13/17 20:50 Urine Glucose (UA) Normal mg/dL (Normal) 11/13/17 20:50 Urine Ketones Trace mg/dL (Negative) H 11/13/17 20:50 Urine Blood Negative (Negative) 11/13/17 20:50 Urine Nitrite Negative (Negative) 11/13/17 20:50 Urine Bilirubin Small (Negative) H 11/13/17 20:50 Urine Urobilinogen Normal mg/dL (Normal) 11/13/17 20:50 Ur Leukocyte Esterase Negative (Negative) 11/13/17 20:50 Urine Microscopic RBC 0-3 per hpf (0-3) 11/13/17 20:50 Urine Microscopic WBC 0-3 per hpf (0-3) 11/13/17 20:50 Ur Squamous Epith Cells Moderate per lpf (None-Few) H 11/13/17 20:50 Urine Bacteria None Seen per hpf (None-Few) 11/13/17 20:50 Hyaline Casts None Seen per lpf (None-Few) 11/13/17 20:50 Salicylates < 2.5 mg/dL (15.0-30.0) L 11/13/17 18:31 Urine Opiates Screen Positive ng/mL (Bnvume=861) H 11/13/17 20:50 Acetaminophen < 10 mcg/mL (10-20) L 11/13/17 18:31 Ur Barbiturates Screen Negative ng/mL (Uriqbo=798) 11/13/17 20:50 Ur Phencyclidine Scrn Negative ng/mL (Cutoff=25) 11/13/17 20:50 Ur Amphetamines Screen Positive ng/mL (Nwlnsl=9062) H 11/13/17 20:50 U Benzodiazepines Scrn Negative ng/mL (Dtklfw=489) 11/13/17 20:50 Urine Cocaine Screen Positive ng/mL (Cutoff= 300) H 11/13/17 20:50 U Marijuana (THC) Screen Negative ng/mL (Cutoff = 50) 11/13/17 20:50 Ethyl Alcohol < 10 mg/dL (Less than 10) 11/13/17 18:31 Assessment and Plan (1) Major depressive disorder, recurrent, severe with psychotic symptoms Current visit: Yes Status: Acute Plan: Admit inpatient for safety and stabilization, Close observation, Suicide Precautions per unit protocol, Secure weapons Risks, benefits, side effects, alternatives discussed w/pt: Yes Patient agreeable to treatment: Yes Plans for Post Hospital Care: Home Estimated Length of Stay (Days): 5 (2) Suicidal ideations Current visit: Yes Status: Acute Plan: Admit inpatient for safety and stabilization, Close observation, Secure weapons Risks, benefits, side effects, alternatives discussed w/pt: Yes Patient agreeable to treatment: Yes Plans for Post Hospital Care: Home (3) Sedative, hypnotic or anxiolytic dependence, uncomplicated Current visit: Yes Status: Chronic Plan: Group Therapy, Monitor sleep, Monitor appetite Risks, benefits, side effects, alternatives discussed w/pt: Yes Patient agreeable to treatment: Yes Plans for Post Hospital Care: Home (4) 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 Current visit: Yes Status: Acute Plan: Admit inpatient for safety and stabilization, Close observation, Suicide Precautions per unit protocol, Encourage participation in unit milieu Risks, benefits, side effects, alternatives discussed w/pt: Yes Patient agreeable to treatment: Yes Plans for Post Hospital Care: Home (5) Cocaine dependence with cocaine-induced psychotic disorder with delusions Current visit: Yes Status: Acute Plan: Admit inpatient for safety and stabilization, Close observation, Encourage participation in unit milieu, Secure weapons, Family/Supportive other meeting Risks, benefits, side effects, alternatives discussed w/pt: Yes Patient agreeable to treatment: Yes Plans for Post Hospital Care: Home
[2017-11-14] MEDS: Gabapentin 400 MG CAPSULE PO SCH (20:52)
[2017-11-14] MEDS: OLANZapine 10 MG TAB.RAPDIS PO SCH (20:52)
--- NOTE | 2017-11-15 06:22 | Internal Medicine Consult Note ---
Date of Encounter: 11/15/17 Time of Encounter: 03:30 - Assessment and plan (1) Psychogenic formication Current Visit: Yes Status: Acute Assessment and plan: Patient picking at his skin because he thinks there are bugs crawling on him. This behavior has resulted in 3 wounds on his arms. One wound on his left arm, 1 wound on his right forearm, and one wound on his right elbow. There is erythema around the wounds as well, and the flesh is tender to the touch. Suspect possible cellulitis. Culture wounds today, we will follow-up the results when available. Started patient on TMP-SMX for coverage for MRSA. Ordered general labs including CBC and BMP today, follow-up results Continue to monitor vitals for signs of fever and infection. (2) Cellulitis Current Visit: Yes Status: Acute Assessment and plan: Patient has 2 wounds on his right arm as well as erythema of the forearm up to around the elbow. Vital signs otherwise stable no other signs of infection. Start patient on TMP-SMX Cultured wounds follow-up results Monitor vitals for signs of worsening infection. Qualifiers: Site of cellulitis: extremity Site of cellulitis of extremity: upper extremity Laterality: right Qualified Code(s): L03.113 - Cellulitis of right upper limb (3) Cellulitis Current Visit: Yes Status: Acute Assessment and plan: Patient has 1 wound on his left forearm. Redness surrounding the wound as well. Cultures obtained from this wound and bandages applied Follow-up results of the cultures. Start patient on TMP SMX, change antibiotics as indicated when culture results return. Qualifiers: Site of cellulitis: extremity Site of cellulitis of extremity: upper extremity Laterality: left Qualified Code(s): L03.114 - Cellulitis of left upper limb (4) Suicide attempt by multiple drug overdose Current Visit: No Status: Acute Assessment and plan: Continue treatment as per psychiatric team. Qualifiers: Encounter type: initial encounter Qualified Code(s): T50.902A - Poisoning by unspecified drugs, medicaments and biological substances, intentional self- harm, initial encounter - Time Spent With Patient Total time spent is greater than 50% in coordination of care (as documented) at patient's floor/unit and/or counseling patient: Greater than 35 minutes Internal Medicine - CN: HPI - Data of Consult Consult date: 11/15/17 Requesting Physician: Tyshawn Graves - Consult Narrative Reason for consult: Wounds on arms History of present illness: Mr. Tinajero is a 52 year old male I was asked to consult on patient and psychiatry unit for wounds on his bilateral forearms as well as right elbow. Patient has a known history of substance abuse and has had delusions of bugs crawling on his skin. He has picked at these wounds and they had become quite large. The psychiatry staff became concerned for infection has the wounds began to have a green puslike appearance with some red surrounding the wounds. Prior to my arrival wound dressings had been applied to the wounds to help prevent further digital trauma. Vital signs are otherwise stable. He has these 3 wounds and does not appear to have any additional wounds: 1 wound left forearm approximately 6 cm x 4 cm, 1 wound right forearm 6 cm x 4 cm, and 1 wound to the elbow which I did not remove the bandage from. There is also redness surrounding each of the wounds, and the skin is tender to the touch. Patient denies nausea vomiting diarrhea constipation chest and abdominal pain. Past Med Surg Social Fam HX - Past Medical History Medical history: migraine Psychiatric history: depression - Past Surgical History Surgical History: orthopedic, other Additional surgical history: Left arm. Right elbow ulnar nerve decompression. Left elbow revision - Social History Smoking Status: Former smoker Smokeless Tobacco Status: No Alcohol use: rarely Drug use: methamphetamine, prescription drug abuse - Family History Mother Living Status: Still Living Hx Family Cardiac Disorders: No Hx Family Respiratory Disorders: No Hx Family Cancer: No Hx Family GI Disorders: No Hx Family Endocrine Disorder: Yes (DM) Hx Family Neuromuscular Disorders: No Hx Family Neurologic Disorders: No Hx Family HEENT Disorders: No Hx Family Autoimmune Disorders: No Review of systems: Review of systems negative except as indicated in the history of present illness Internal Medicine - CN: Meds Amitriptyline [Elavil] 25 mg PO HS 11/14/17 [History] Gabapentin [Neurontin] 800 mg PO TID 11/14/17 [History] HydrOXYzine Pamoate [Vistaril] 50 mg PO TID PRN 11/14/17 [History] Loxapine Succinate [Loxapine] 10 mg PO BID 11/14/17 [History] Trazodone HCl 150 - 300 mg PO HS 11/14/17 [History] cloNIDine HCl [CloNIDine HCl] 0.1 mg PO BID 11/14/17 [History] 3 Allergy/AdvReac Type Severity Reaction Status Date / Time No Known Allergies Allergy Verified 08/20/16 09:49 Internal Medicine - CN: Exam - Constitutional Vitals: Temp Pulse Resp BP Pulse Ox 98.1 F 81 18 137/76 98 11/14/17 20:48 11/14/17 20:48 11/14/17 20:48 11/14/17 20:48 11/13/17 19:00 General appearance IM: Present: mild distress, A&O X 3 - Head Head exam: Present: atraumatic - Skin Skin exam IM: Present: abrasion, erythema Additional comments: As described in the history of present illness, patient has 3 wounds on his arms and one on his left arm and 2 on the right. Please see history of present illness for more details - Expanded Skin Exam Type of lesion: Present: abrasion Distribution of rash: Present: LALIHTA PINEDA Description of rash: Present: erythematous Internal Medicine - CN: Reslt - Labs CBC & Chem 7: 11/13/17 18:31 11/13/17 18:31 Consult Discharge Plan - Plan Referrals: Jamey Duffy MD [Primary Care Provider] -
[2017-11-15 08:27] LABS: Hematocrit 48.3 % (37.5-50.1); Mean Corpuscular HGB Conc 33.5 g/dL (31.6-35.5); Mean Corpuscular Hemoglobin 32.2 pg (28.0-33.3); Mean Platelet Volume 9.1 fL (9.4-12.4); Platelet Count 323 K/mcL (140-400); Red Blood Count 5.03 M/mcL (4.19-5.50); Red Cell Distribution Width 13.1 % (11.5-14.5)
[2017-11-15 08:28] LABS: Hemoglobin 16.2 g/dL (12.9-16.9)
[2017-11-15] MEDS: Nicotine 21 MG PATCH.TD24 TD SCH (08:30)
[2017-11-15] MEDS: Sulfamethoxazole/Trimeth DS 1 EACH TABLET PO SCH ×2 (08:30→21:36)
[2017-11-15] MEDS: Gabapentin 400 MG CAPSULE PO SCH ×3 (08:39→21:36)
[2017-11-15 08:47] LABS: BUN/Creatinine Ratio 16 (6-26); Blood Urea Nitrogen 13 mg/dL (6-20); Calcium 9.2 mg/dL (8.6-10.3); Carbon Dioxide 27 mEq/L (23-29); Chloride 108 mEq/L (98-107); Glucose 99 mg/dL (70-105); Osmolality,Calculated 290 (280-300); Potassium 3.6 mEq/L (3.5-5.1); Sodium 140 mEq/L (136-145); eGFR For African Americans > 60 (> 60); eGFR For Non-African Americans > 60 (> 60)
[2017-11-15] MEDS ORDERED: *HR* LORazepam 1 MG TABLET PO ONE (11:29)
--- NOTE | 2017-11-15 12:41 | Psychiatry Progress Note ---
Date of Encounter: 11/15/17 Time of Encounter: 11:55 Subjective Interval history: Mr. Tinajero is a 52 year old male who presents for methamphetamine use D/O and substance induced mood disorder. The patient continues to reports suicidal ideation at this time. He reports that he has a chronic pain condition from cervicalgia and a plate in his neck. He said that the medicines for his depression were not working. He was followed by [facility] but in the past 24-48 hours may have used cocaine and certainly used methamphetamine. He was seen last night he was picking at his skin he had the idea that there are bugs he talked about bugs and psychiatric containers. Today he is seen and he gives some history and some background is not able to provide a full history. Therefore we had to rely on the chart. The patient says that he lives with his mother in [place] any seeking disability. We also looked at the [facility] report shows he is on gabapentin 800 mg 3 times a day. Pt noted that he feels he is still very depressed. Pt noted I still occasionally have thoughts to harm myself..nothing current though. Pt denied any side effects to current medications. Pt noted he felt safe and comfortable on the unit and will tell staff if things get bad again. Pt was in agreement with current treatment plan. Pt noted that he is doing alright today. Pt noted he slept alright last night. Pt noted his appetite is decreased. Pt rated his depression a 8, on a scale of zero to ten with ten being the worst and zero being none. Pt rate his anxiety a 8, on the same scale. Pt noted both auditory and visiual hallucinations. Pt denied any current thoughts to harm anyone else. No TD noted, AIMS=0 1.Interval hx 2.Continue current medications 3.Review current labs 4.Pt had an opportunity to ask questions and discuss current treatment plan. 5.Supportive therapy was provided 6.Pt encouraged to consider group or individual therapy 7.Pt was in agreement with treatment plan. 8.Pt was educated on the risks benefits and side effects of current medications. 9. Pending court date tomorrow Review of Systems Constitutional: Denies: fever, chills, weakness, weight change Eyes: Denies: eye pain, vision change Ears, Nose, Throat: Denies: ear pain, throat pain, dental pain, hearing loss, congestion Cardiovascular: Denies: chest pain, palpitations, dyspnea on exertion Respiratory: Denies: cough, dyspnea, wheezes Gastrointestinal: Denies: abdominal pain, nausea, vomiting, diarrhea, constipation Musculoskeletal: Denies: joint swelling, joint pain Neurological: Denies: headache, weakness, numbness, memory loss Psychiatric: Reports: suicidal ideation, change in appetite, auditory hallucinations, visual hallucinations Results - Vital Signs Vital Signs: Temp Pulse Resp BP Pulse Ox 97.1 F L 66 18 126/91 98 11/15/17 09:00 11/15/17 09:00 11/15/17 09:00 11/15/17 09:00 11/13/17 19:00 - Labs Labs: Laboratory Results - last 24 hr 11/15/17 11/15/17 08:15 08:15 WBC 9.1 RBC 5.03 Hgb 16.2 D Hct 48.3 MCV 96.0 MCH 32.2 MCHC 33.5 RDW 13.1 Plt Count 323 MPV 9.1 L Sodium 140 Potassium 3.6 Chloride 108 H Carbon Dioxide 27 BUN 13 Creatinine 0.79 Est GFR ( Amer) > 60 Est GFR (Non-Af Amer) > 60 BUN/Creatinine Ratio 16 Glucose 99 Calculated Osmolality 290 Calcium 9.2 Assessment and Plan (1) Substance induced mood disorder Current visit: Yes Status: Acute Plan: Continue hospitalization, Close observation, Suicide Precautions per unit protocol, Encourage participation in unit milieu, Group Therapy, Monitor sleep, Monitor appetite Risks, benefits, side effects, alternatives discussed w/pt: Yes Patient agreeable to treatment: Yes (2) Depressive disorder Current visit: No Status: Acute Plan: Continue hospitalization, Close observation, Suicide Precautions per unit protocol, Encourage participation in unit milieu, Group Therapy, Monitor sleep, Monitor appetite Risks, benefits, side effects, alternatives discussed w/pt: Yes Patient agreeable to treatment: Yes (3) Methamphetamine abuse Current visit: Yes Status: Acute Plan: Continue hospitalization, Close observation, Suicide Precautions per unit protocol, Encourage participation in unit milieu, Group Therapy, Monitor sleep, Monitor appetite Risks, benefits, side effects, alternatives discussed w/pt: Yes Patient agreeable to treatment: Yes (4) Suicidal ideations Current visit: Yes Status: Acute Plan: Continue hospitalization, Close observation, Suicide Precautions per unit protocol, Encourage participation in unit milieu, Group Therapy, Monitor sleep, Monitor appetite Risks, benefits, side effects, alternatives discussed w/pt: Yes Patient agreeable to treatment: Yes (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 Current visit: Yes Status: Acute Plan: Continue hospitalization, Close observation, Suicide Precautions per unit protocol, Encourage participation in unit milieu, Group Therapy, Monitor sleep, Monitor appetite Risks, benefits, side effects, alternatives discussed w/pt: Yes Patient agreeable to treatment: Yes (6) Cocaine dependence with cocaine-induced psychotic disorder with delusions Current visit: Yes Status: Acute Plan: Continue hospitalization, Close observation, Suicide Precautions per unit protocol, Encourage participation in unit milieu, Group Therapy, Monitor sleep, Monitor appetite Risks, benefits, side effects, alternatives discussed w/pt: Yes Patient agreeable to treatment: Yes (7) Psychogenic formication Current visit: Yes Status: Acute Plan: Continue hospitalization, Close observation, Suicide Precautions per unit protocol, Encourage participation in unit milieu, Group Therapy, Monitor sleep, Monitor appetite Risks, benefits, side effects, alternatives discussed w/pt: Yes Patient agreeable to treatment: Yes Consult Discharge Plan - Plan Referrals: Jamey Duffy MD [Primary Care Provider] - Psychiatry Exam - Constitutional Vitals: Temp Pulse Resp BP Pulse Ox 97.1 F L 66 18 126/91 98 11/15/17 09:00 11/15/17 09:00 11/15/17 09:00 11/15/17 09:00 11/13/17 19:00 General appearance: age & developmentally appropriate, well-groomed, well- nourished - Musculoskeletal Gait: normal Station: relaxed Strength & Tone: normal for patient - Psychiatric Patient Orientation: Yes Person, Yes Time, Yes Place Level of alertness: Alert Behavior: cooperative, nervous Psychomotor activity: Agitated Eye Contact: Minimal Contact Mood Description: Euthymic/stable, Anxious Affect description: congruent with mood, full range Speech Volume: Normal Speech pattern: normal rate, normal rhythm, normal tone, fluent, spontaneous Language & Vocabulary: consistent with education Thought Process: Linear, Goal Oriented Thought Content: Yes Suicidal ideation, No Homicidal ideation, No Overt delusions, Yes Paranoid delusion Perceptual Disturbances: Yes Auditory hallucinations, Yes Visual hallucinations Attention Span Ability: Capable of Focused Attention Memory Description: Grossly Intact Patient Reliability: Reliable Historian Fund of knowledge: Yes abstraction ability, Yes aware of current events Intelligence Estimate: Average Judgment: Limited Insight: Partial
--- NOTE | 2017-11-15 13:56 | Internal Med Progress Note ---
Date of Encounter: 11/15/17 Time of Encounter: 13:53 - Assessment and plan (1) Bronchitis Current Visit: Yes Status: Acute (2) Cellulitis Current Visit: Yes Status: Acute Qualifiers: Site of cellulitis: extremity Site of cellulitis of extremity: upper extremity Laterality: right Qualified Code(s): L03.113 - Cellulitis of right upper limb Code(s): L03.90 - Cellulitis, unspecified SNOMED Code(s): 804424732 - Time Spent With Patient Counseling patient about deep breathing, add albuterol as needed, add Mucinex, check chest x-ray, continue Bactrim Total time spent is greater than 50% in coordination of care (as documented) at patient's floor/unit and/or counseling patient: 25 - 35 minutes - Subjective Interval history: Patient is complaining of dry cough with brownish sputum, he denies any shortness of breath, he denies any chest pain, patient had cellulitis bilateral upper extremities treated with some Bactrim, no fever or chills - Constitutional Vitals: Temp Pulse Resp BP Pulse Ox 97.1 F L 66 18 126/91 98 11/15/17 09:00 11/15/17 09:00 11/15/17 09:00 11/15/17 09:00 11/13/17 19:00 General appearance: Present: cooperative - Head Head exam: Present: atraumatic, normocephalic - Neck Neck exam general surgery: Present: supple, trachea midline. Absent: lymphadenopathy - Respiratory Respiratory exam: Present: decreased breath sounds, rales (Crackles bilateral lung base). Absent: accessory muscle use, rhonchi, wheezes - Cardiovascular Cardiovascular exam: Present: RRR, +S1, +S2. Absent: diastolic murmur, gallop, rubs, systolic murmur - GI/Abdominal GI/Abdominal exam: Present: normal bowel sounds, soft, no peritoneal signs. Absent: distended, tenderness - Extremities Exam Extremities exam: Present: warm (Wound dressing intact, no erythema on his arm or forearm). Absent: pedal edema Internal Medicine: Result - Labs CBC & Chem 7: 11/15/17 08:15 11/15/17 08:15 Labs: Short CBC 11/15/17 Range/Units 08:15 WBC 9.1 (4.3-11.1) K/mcL Hgb 16.2 D (12.9-16.9) g/dL Hct 48.3 (37.5-50.1) % Plt Count 323 (140-400) K/mcL [facility] 11/15/17 08:15 Sodium 140 Potassium 3.6 Chloride 108 H Carbon Dioxide 27 BUN 13 Creatinine 0.79 Glucose 99 Calcium 9.2 - VTE Reasons for not Prescribing Prophylaxis: Treatment not Indicated - Low risk for VTE Consult Discharge Plan - Plan Referrals: Jamey Duffy MD [Primary Care Provider] -
[2017-11-15 14:21] LABS: Magnesium 1.9 mg/dL (1.6-2.6); Phosphorous 3.6 mg/dL (2.7-4.5)
[2017-11-15] MEDS: OLANZapine 10 MG TAB.RAPDIS PO SCH (21:36)
[2017-11-16] MEDS: Gabapentin 400 MG CAPSULE PO SCH ×3 (08:09→21:19)
[2017-11-16] MEDS: Sulfamethoxazole/Trimeth DS 1 EACH TABLET PO SCH ×2 (08:09→21:17)
[2017-11-16] MEDS: Nicotine 21 MG PATCH.TD24 TD SCH (08:09)
--- NOTE | 2017-11-16 18:08 | Psychiatry Progress Note ---
Date of Encounter: 11/16/17 Time of Encounter: 11:30 Subjective Interval history: Mr. Tinajero is a 52 yo male who presents for methamphetamine use D/O and substance induced mood disorder. Pt noted that he feels he is still very depressed. Pt noted "I am still occasionally having sporatic thoughts to harm myself..nothing current though. Pt denied any side effects to current medications. Pt noted he felt safe and comfortable on the unit and will tell staff if an exacerbation of depression should occur. Pt was in agreement with current treatment plan. Pt noted that he is doing alright today. Pt noted he slept a lot night. Pt noted his appetite is decreased. Pt rated his depression a 8, on a scale of zero to ten with ten being the worst and zero being none. Pt rate his anxiety a 8, on the same scale. Pt noted both auditory and visiual hallucinations. Pt denied any current thoughts to harm anyone else. No TD noted, AIMS=0 1.Interval hx 2.Continue current medications 3.Review current labs 4.Pt had an opportunity to ask questions and discuss current treatment plan. 5.Supportive therapy was provided 6.Pt encouraged to consider group or individual therapy 7.Pt was in agreement with treatment plan. 8.Pt was educated on the risks benefits and side effects of current medications. 9. Increase olanzapine to 15 mg PO QHS for mood and psychosis Review of Systems Constitutional: Denies: fever, chills, weakness, weight change Eyes: Denies: eye pain, vision change Ears, Nose, Throat: Denies: ear pain, throat pain, dental pain, hearing loss, congestion Cardiovascular: Denies: chest pain, palpitations, dyspnea on exertion Respiratory: Denies: cough, dyspnea, wheezes Gastrointestinal: Denies: abdominal pain, nausea, vomiting, diarrhea, constipation Musculoskeletal: Denies: joint swelling, joint pain Neurological: Denies: headache, weakness, numbness, memory loss Psychiatric: Reports: suicidal ideation, change in appetite, auditory hallucinations, visual hallucinations Results - Vital Signs Vital Signs: Temp Pulse Resp BP Pulse Ox 98.1 F 76 16 144/94 98 11/16/17 09:00 11/16/17 09:00 11/16/17 09:00 11/16/17 09:00 11/13/17 19:00 - Labs Labs: Laboratory Results - last 24 hr 11/16/17 11/16/17 08:06 08:06 Vitamin B12 307 25-OH Vitamin D Total 36 - Impressions ITS Impressions Chest X-Ray 11/15/17 13:59 IMPRESSION: 1. No acute abnormality. D/ / Javad Rodriguez MD / Javad Rodriguez MD Interpreting Provider: Javad Rodriguez MD Assessment and Plan (1) Substance induced mood disorder Current visit: Yes Status: Acute Plan: Continue hospitalization, Close observation, Suicide Precautions per unit protocol, Encourage participation in unit milieu, Group Therapy, Monitor sleep, Monitor appetite Risks, benefits, side effects, alternatives discussed w/pt: Yes Patient agreeable to treatment: Yes (2) Depressive disorder Current visit: No Status: Acute Plan: Continue hospitalization, Close observation, Suicide Precautions per unit protocol, Encourage participation in unit milieu, Group Therapy, Monitor sleep, Monitor appetite Risks, benefits, side effects, alternatives discussed w/pt: Yes Patient agreeable to treatment: Yes (3) Methamphetamine abuse Current visit: Yes Status: Acute Plan: Continue hospitalization, Close observation, Suicide Precautions per unit protocol, Encourage participation in unit milieu, Group Therapy, Monitor sleep, Monitor appetite Risks, benefits, side effects, alternatives discussed w/pt: Yes Patient agreeable to treatment: Yes (4) Suicidal ideations Current visit: Yes Status: Acute Plan: Continue hospitalization, Close observation, Suicide Precautions per unit protocol, Encourage participation in unit milieu, Group Therapy, Monitor sleep, Monitor appetite Risks, benefits, side effects, alternatives discussed w/pt: Yes Patient agreeable to treatment: Yes (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 Current visit: Yes Status: Acute Plan: Continue hospitalization, Close observation, Suicide Precautions per unit protocol, Encourage participation in unit milieu, Group Therapy, Monitor sleep, Monitor appetite Risks, benefits, side effects, alternatives discussed w/pt: Yes Patient agreeable to treatment: Yes (6) Cocaine dependence with cocaine-induced psychotic disorder with delusions Current visit: Yes Status: Acute Plan: Continue hospitalization, Close observation, Suicide Precautions per unit protocol, Encourage participation in unit milieu, Group Therapy, Monitor sleep, Monitor appetite Risks, benefits, side effects, alternatives discussed w/pt: Yes Patient agreeable to treatment: Yes (7) Psychogenic formication Current visit: Yes Status: Acute Plan: Continue hospitalization, Close observation, Suicide Precautions per unit protocol, Encourage participation in unit milieu, Group Therapy, Monitor sleep, Monitor appetite Risks, benefits, side effects, alternatives discussed w/pt: Yes Patient agreeable to treatment: Yes Consult Discharge Plan - Plan Referrals: [facility] [Outside] - 11/24/17 11:00 am (The above appointment is with Aster Zapata for outpatient mental health counseling.You will also see Vasu, a psychiatric provider, on December 08 2017 at 1515. Please bring photo ID and insurance card to your appointments. Call at least 24 hours in advance for cancellations. * If you need transporattion to your appointment call 3 days ahead. ) Jamey Duffy MD [Partnered Physician] - 11/20/17 10:45 am (The above appointment is with Dr. Duffy for followup medical care.) Psychiatry Exam - Constitutional Vitals: Temp Pulse Resp BP Pulse Ox 98.1 F 76 16 144/94 98 11/16/17 09:00 11/16/17 09:00 11/16/17 09:00 11/16/17 09:00 11/13/17 19:00 General appearance: age & developmentally appropriate, well-groomed, well- nourished - Musculoskeletal Gait: normal Station: relaxed Strength & Tone: normal for patient - Psychiatric Patient Orientation: Yes Person, Yes Time, Yes Place Level of alertness: Alert Behavior: withdrawn Psychomotor activity: Slowed Eye Contact: Minimal Contact Mood Description: Depressed Affect description: congruent with mood Speech Volume: Normal Speech pattern: normal rate, normal rhythm, normal tone, fluent, spontaneous Language & Vocabulary: consistent with education Thought Process: Linear, Goal Oriented Thought Content: Yes Suicidal ideation, No Homicidal ideation Perceptual Disturbances: Yes Auditory hallucinations, Yes Visual hallucinations (no thought blocking noted) Attention Span Ability: Capable of Focused Attention Memory Description: Grossly Intact Patient Reliability: Questionable Historian Fund of knowledge: Yes average Intelligence Estimate: Average Judgment: Limited Insight: Partial
[2017-11-16] MEDS: OLANZapine 10 MG TAB.RAPDIS PO SCH (21:18)
[2017-11-16] MEDS: traZODone 50 MG TABLET PO PRN (21:20)
[2017-11-17] MEDS: OLANZapine 10 MG TAB.RAPDIS PO SCH ×2 (02:25→20:52)
[2017-11-17] MEDS: Nicotine 21 MG PATCH.TD24 TD SCH (08:42)
[2017-11-17] MEDS: Gabapentin 400 MG CAPSULE PO SCH ×3 (08:43→20:53)
[2017-11-17] MEDS: Sulfamethoxazole/Trimeth DS 1 EACH TABLET PO SCH ×2 (08:43→20:53)
--- NOTE | 2017-11-17 12:41 | Psychiatry Progress Note ---
Date of Encounter: 11/17/17 Time of Encounter: 12:30 Subjective Interval history: Mr. Tinajero is a 52 yo male who presents for methamphetamine use D/O and substance induced mood disorder. Pt noted that he feels he is doing better today. Pt noted "I just feel better today. PT noted that he feels his medications are "working slowly." Pt denied any side effects to current medications. Pt noted he felt safe and comfortable on the unit and will tell staff if an exacerbation of depression should occur. Pt was in agreement with current treatment plan. Pt noted that he is doing better today. Pt noted he slept really good last night. Pt noted his appetite is better. Pt rated his depression a 8, on a scale of zero to ten with ten being the worst and zero being none. Pt rate his anxiety a 7, on the same scale. Pt denied any auditory and visiual hallucinations. Pt denied any current thoughts to harm anyone else. No TD noted, AIMS=0 1.Interval hx 2.Continue current medications 3.Review current labs 4.Pt had an opportunity to ask questions and discuss current treatment plan. 5.Supportive therapy was provided 6.Pt encouraged to consider group or individual therapy 7.Pt was in agreement with treatment plan. 8.Pt was educated on the risks benefits and side effects of current medications. 9. Continue to coordinate for discharge planning. Review of Systems Constitutional: Denies: fever, chills, weakness, weight change Eyes: Denies: eye pain, vision change Ears, Nose, Throat: Denies: ear pain, throat pain, dental pain, hearing loss, congestion Cardiovascular: Denies: chest pain, palpitations, dyspnea on exertion Respiratory: Denies: cough, dyspnea, wheezes Gastrointestinal: Denies: abdominal pain, nausea, vomiting, diarrhea, constipation Musculoskeletal: Denies: joint swelling, joint pain Neurological: Denies: headache, weakness, numbness, memory loss Psychiatric: Reports: suicidal ideation, change in appetite, auditory hallucinations, visual hallucinations Results - Vital Signs Vital Signs: Temp Pulse Resp BP Pulse Ox 97.7 F 71 16 140/90 98 11/17/17 09:00 11/17/17 09:00 11/17/17 09:00 11/17/17 09:00 11/13/17 19:00 - Labs Labs: Laboratory Results - last 24 hr 11/16/17 08:06 25-OH Vitamin D Total 36 - Impressions ITS Impressions Chest X-Ray 11/15/17 13:59 IMPRESSION: 1. No acute abnormality. D/ / Javad Rodriguez MD / Javad Rodriguez MD Interpreting Provider: Javad Rodriguez MD Assessment and Plan (1) Substance induced mood disorder Current visit: Yes Status: Acute Plan: Continue hospitalization, Close observation, Suicide Precautions per unit protocol, Encourage participation in unit milieu, Group Therapy, Monitor sleep, Monitor appetite Risks, benefits, side effects, alternatives discussed w/pt: Yes Patient agreeable to treatment: Yes (2) Depressive disorder Current visit: No Status: Acute Plan: Continue hospitalization, Close observation, Suicide Precautions per unit protocol, Encourage participation in unit milieu, Group Therapy, Monitor sleep, Monitor appetite Risks, benefits, side effects, alternatives discussed w/pt: Yes Patient agreeable to treatment: Yes (3) Methamphetamine abuse Current visit: Yes Status: Acute Plan: Continue hospitalization, Close observation, Suicide Precautions per unit protocol, Encourage participation in unit milieu, Group Therapy, Monitor sleep, Monitor appetite Risks, benefits, side effects, alternatives discussed w/pt: Yes Patient agreeable to treatment: Yes (4) Suicidal ideations Current visit: Yes Status: Acute Plan: Continue hospitalization, Close observation, Suicide Precautions per unit protocol, Encourage participation in unit milieu, Group Therapy, Monitor sleep, Monitor appetite Risks, benefits, side effects, alternatives discussed w/pt: Yes Patient agreeable to treatment: Yes (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 Current visit: Yes Status: Acute Plan: Continue hospitalization, Close observation, Suicide Precautions per unit protocol, Encourage participation in unit milieu, Group Therapy, Monitor sleep, Monitor appetite Risks, benefits, side effects, alternatives discussed w/pt: Yes Patient agreeable to treatment: Yes (6) Cocaine dependence with cocaine-induced psychotic disorder with delusions Current visit: Yes Status: Acute Plan: Continue hospitalization, Close observation, Suicide Precautions per unit protocol, Encourage participation in unit milieu, Group Therapy, Monitor sleep, Monitor appetite Risks, benefits, side effects, alternatives discussed w/pt: Yes Patient agreeable to treatment: Yes (7) Psychogenic formication Current visit: Yes Status: Acute Plan: Continue hospitalization, Close observation, Suicide Precautions per unit protocol, Encourage participation in unit milieu, Group Therapy, Monitor sleep, Monitor appetite Risks, benefits, side effects, alternatives discussed w/pt: Yes Patient agreeable to treatment: Yes Consult Discharge Plan - Plan Referrals: [facility] [Outside] - 11/24/17 11:00 am (The above appointment is with Aster Zapata for outpatient mental health counseling.You will also see Vasu, a psychiatric provider, on December 08 2017 at 1515. Please bring photo ID and insurance card to your appointments. Call at least 24 hours in advance for cancellations. * If you need transporattion to your appointment call 3 days ahead. ) Jamey Duffy MD [Partnered Physician] - 11/20/17 10:45 am (The above appointment is with Dr. Duffy for followup medical care.) Psychiatry Exam - Constitutional Vitals: Temp Pulse Resp BP Pulse Ox 97.7 F 71 16 140/90 98 11/17/17 09:00 11/17/17 09:00 11/17/17 09:00 11/17/17 09:00 11/13/17 19:00 General appearance: age & developmentally appropriate, well-groomed, well- nourished - Musculoskeletal Gait: normal Station: relaxed Strength & Tone: normal for patient - Psychiatric Patient Orientation: Yes Person, Yes Time, Yes Place Level of alertness: Alert Behavior: calm, cooperative, withdrawn Psychomotor activity: Normal Eye Contact: Maintains Eye Contact Mood Description: Euthymic/stable, Depressed Affect description: congruent with mood, full range Speech Volume: Normal Speech pattern: normal rate, normal rhythm, normal tone, fluent, spontaneous Language & Vocabulary: consistent with education Thought Process: Linear, Goal Oriented Thought Content: No Suicidal ideation, No Homicidal ideation, No Overt delusions Perceptual Disturbances: No Auditory hallucinations, No Visual hallucinations Attention Span Ability: Capable of Focused Attention Memory Description: Grossly Intact Patient Reliability: Reliable Historian Fund of knowledge: Yes abstraction ability, Yes aware of current events Intelligence Estimate: Average Judgment: Limited Insight: Partial
[2017-11-17] MEDS: traZODone 50 MG TABLET PO PRN (20:52)
[2017-11-17] MEDS: hydrOXYzine pamoate 25 MG CAPSULE PO PRN (20:53)
--- NOTE | 2017-11-18 07:38 | Psychiatry Progress Note ---
Date of Encounter: 11/18/17 Time of Encounter: 07:30 Subjective Interval history: Mr. Tinajero is a 52 yo male who presents for methamphetamine use D/O and substance induced mood disorder. Pt noted that he feels he is doing better today. Pt noted "I really feel good today. PT noted that he feels his medications are "working good." Pt denied any side effects to current medications. Pt noted he felt safe and comfortable on the unit. Pt was in agreement for dischrarge planning tomorrow to [facility]. Pt was in agreement with current treatment plan. Pt noted that he is doing better today. Pt noted he slept really good last night. Pt noted his appetite is better. Pt rated his depression a 8, on a scale of zero to ten with ten being the worst and zero being none. Pt rate his anxiety a 7, on the same scale. Pt denied any auditory and visiual hallucinations. Pt denied any current thoughts to harm anyone else. No TD noted, AIMS=0 1.Interval hx 2.Continue current medications 3.Review current labs 4.Pt had an opportunity to ask questions and discuss current treatment plan. 5.Supportive therapy was provided 6.Pt encouraged to consider group or individual therapy 7.Pt was in agreement with treatment plan. 8.Pt was educated on the risks benefits and side effects of current medications. 9. Continue to coordinate for discharge planning to [facility]/ tomorrow ( pt in agreement). Review of Systems Constitutional: Denies: fever, chills, weakness, weight change Eyes: Denies: eye pain, vision change Ears, Nose, Throat: Denies: ear pain, throat pain, dental pain, hearing loss, congestion Cardiovascular: Denies: chest pain, palpitations, dyspnea on exertion Respiratory: Denies: cough, dyspnea, wheezes Gastrointestinal: Denies: abdominal pain, nausea, vomiting, diarrhea, constipation Musculoskeletal: Denies: joint swelling, joint pain Neurological: Denies: headache, weakness, numbness, memory loss Psychiatric: Reports: suicidal ideation, change in appetite, auditory hallucinations, visual hallucinations Results - Vital Signs Vital Signs: Temp Pulse Resp BP Pulse Ox 98.9 F 64 16 124/85 98 11/17/17 19:55 11/17/17 19:55 11/17/17 19:55 11/17/17 19:55 11/13/17 19:00 - Impressions ITS Impressions Chest X-Ray 11/15/17 13:59 IMPRESSION: 1. No acute abnormality. D/ / Javad Rodriguez MD / Javad Rodriguez MD Interpreting Provider: Javad Rodriguez MD Assessment and Plan (1) Substance induced mood disorder Current visit: Yes Status: Acute Plan: Continue hospitalization, Close observation, Suicide Precautions per unit protocol, Encourage participation in unit milieu, Group Therapy, Monitor sleep, Monitor appetite Risks, benefits, side effects, alternatives discussed w/pt: Yes Patient agreeable to treatment: Yes (2) Depressive disorder Current visit: No Status: Acute Plan: Continue hospitalization, Close observation, Suicide Precautions per unit protocol, Encourage participation in unit milieu, Group Therapy, Monitor sleep, Monitor appetite Risks, benefits, side effects, alternatives discussed w/pt: Yes Patient agreeable to treatment: Yes (3) Methamphetamine abuse Current visit: Yes Status: Acute Plan: Continue hospitalization, Close observation, Suicide Precautions per unit protocol, Encourage participation in unit milieu, Group Therapy, Monitor sleep, Monitor appetite Risks, benefits, side effects, alternatives discussed w/pt: Yes Patient agreeable to treatment: Yes (4) Suicidal ideations Current visit: Yes Status: Acute Plan: Continue hospitalization, Close observation, Suicide Precautions per unit protocol, Encourage participation in unit milieu, Group Therapy, Monitor sleep, Monitor appetite Risks, benefits, side effects, alternatives discussed w/pt: Yes Patient agreeable to treatment: Yes (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 Current visit: Yes Status: Acute Plan: Continue hospitalization, Close observation, Suicide Precautions per unit protocol, Encourage participation in unit milieu, Group Therapy, Monitor sleep, Monitor appetite Risks, benefits, side effects, alternatives discussed w/pt: Yes Patient agreeable to treatment: Yes (6) Cocaine dependence with cocaine-induced psychotic disorder with delusions Current visit: Yes Status: Acute Plan: Continue hospitalization, Close observation, Suicide Precautions per unit protocol, Encourage participation in unit milieu, Group Therapy, Monitor sleep, Monitor appetite Risks, benefits, side effects, alternatives discussed w/pt: Yes Patient agreeable to treatment: Yes (7) Psychogenic formication Current visit: Yes Status: Acute Plan: Continue hospitalization, Close observation, Suicide Precautions per unit protocol, Encourage participation in unit milieu, Group Therapy, Monitor sleep, Monitor appetite Risks, benefits, side effects, alternatives discussed w/pt: Yes Patient agreeable to treatment: Yes Consult Discharge Plan - Plan Referrals: [facility] [Outside] - 11/24/17 11:00 am (The above appointment is with Aster Zapata for outpatient mental health counseling.You will also see Vasu, a psychiatric provider, on December 08 2017 at 3:15pm. Please bring photo ID and insurance card to your appointments. Call at least 24 hours in advance for cancellations. * If you need transporattion to your appointment call 3 days ahead. ) Jamey Duffy MD [Partnered Physician] - 11/20/17 10:45 am (The above appointment is with Dr. Duffy for followup medical care.) Psychiatry Exam - Constitutional Vitals: Temp Pulse Resp BP Pulse Ox 98.9 F 64 16 124/85 98 11/17/17 19:55 11/17/17 19:55 11/17/17 19:55 11/17/17 19:55 11/13/17 19:00 General appearance: age & developmentally appropriate, well-groomed, well- nourished - Musculoskeletal Gait: normal Station: relaxed Strength & Tone: normal for patient - Psychiatric Patient Orientation: Yes Person, Yes Time, Yes Place Level of alertness: Alert Behavior: calm, cooperative Psychomotor activity: Normal Eye Contact: Maintains Eye Contact Mood Description: Euthymic/stable Affect description: congruent with mood, full range Speech Volume: Normal Speech pattern: normal rate, normal rhythm, normal tone, fluent, spontaneous Language & Vocabulary: consistent with education Thought Process: Linear, Goal Oriented Thought Content: No Suicidal ideation, No Homicidal ideation, No Overt delusions Perceptual Disturbances: No Auditory hallucinations, No Visual hallucinations Attention Span Ability: Capable of Focused Attention Memory Description: Grossly Intact Patient Reliability: Reliable Historian Fund of knowledge: Yes abstraction ability, Yes aware of current events Intelligence Estimate: Average Judgment: Limited Insight: Partial
[2017-11-18] MEDS: Nicotine 21 MG PATCH.TD24 TD SCH (09:40)
[2017-11-18] MEDS: Gabapentin 400 MG CAPSULE PO SCH ×3 (09:43→21:20)
[2017-11-18] MEDS: Sulfamethoxazole/Trimeth DS 1 EACH TABLET PO SCH ×2 (09:44→21:20)
[2017-11-18] MEDS: OLANZapine 10 MG TAB.RAPDIS PO SCH (21:20)
[2017-11-19] MEDS: Gabapentin 400 MG CAPSULE PO SCH (09:03)
[2017-11-19] MEDS: Sulfamethoxazole/Trimeth DS 1 EACH TABLET PO SCH (09:04)
[2017-11-19] MEDS: Nicotine 21 MG PATCH.TD24 TD SCH (09:04)
[2017-11-19 09:22] VITALS: BP 122/88
--- NOTE | 2017-11-19 13:04 | Discharge Summary ---
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 Status: Acute (6) Cocaine dependence with cocaine-induced psychotic disorder with delusions Status: Acute (7) Psychogenic formication Status: Acute Medications - Discharge Medications Prescriptions: Amitriptyline [Elavil] 25 mg PO HS 30 Days #30 tablet cloNIDine HCl [CloNIDine HCl] 0.1 mg PO BID 30 Days #60 tablet Haloperidol [Haldol] 2 mg PO TID 15 Days #30 tablet HydrOXYzine Pamoate [Vistaril] 50 mg PO TID PRN 30 Days #90 capsule PRN Reason: Anxiety OLANZapine [Zyprexa Zydis] 15 mg PO HS 30 Days #48 tab.rapdis Sulfamethoxazole/Trimeth DS [Bactrim Ds] 1 each PO BID 5 Days #10 tablet Trazodone HCl 150 - 300 mg PO HS #30 tablet Amitriptyline [Elavil] 25 mg PO HS 30 Days #30 tablet 11/19/17 [Rx] Haloperidol [Haldol] 2 mg PO TID 15 Days #30 tablet 11/19/17 [Rx] HydrOXYzine Pamoate [Vistaril] 50 mg PO TID PRN 30 Days #90 capsule 11/19/17 [Rx ] OLANZapine [Zyprexa Zydis] 15 mg PO HS 30 Days #48 tab.rapdis 11/19/17 [Rx] Sulfamethoxazole/Trimeth DS [Bactrim Ds] 1 each PO BID 5 Days #10 tablet [Rx] Trazodone HCl 150 - 300 mg PO HS #30 tablet 11/19/17 [Rx] cloNIDine HCl [CloNIDine HCl] 0.1 mg PO BID 30 Days #60 tablet 11/19/17 [Rx] 3 Allergy/AdvReac Type Severity Reaction Status Date / Time No Known Allergies Allergy Verified 08/20/16 09:49 Results Procedures and tests throughout hospitalization: Completed Lab Orders Category Date Time Status BMP [Basic Metabolic Panel] Routine Lab 11/15/17 08:15 Completed Complete Blood Count w/o Diff [HEME] Routine Lab 11/15/17 08:15 Completed Magnesium Routine Lab 11/15/17 08:15 Completed Phosphorous Routine Lab 11/15/17 08:15 Completed Vitamin B12 Routine Lab 11/15/17 14:05 Completed Vitamin D 25 Hydroxy Routine Lab 11/15/17 14:05 Completed Completed Imaging Orders Category Date Time Status XR chest 1V portable [XR] Routine Exams 11/15/17 13:59 Completed Provider Date of admission: 11/14/17 00:38 Primary care physician: PCP NONE Consults: 11/14/17 22:33 Consult to Hospitalist [CONS] Routine Consulting Provider: Hospitalist Ro Reason for Consult: wounds to bilateral arms that have drainage Call Completed: Yes Discharging clinician: [facility] Exam - Constitutional Vitals: Temp Pulse Resp BP Pulse Ox 97.3 F L 75 16 122/88 94 11/19/17 09:00 11/19/17 09:00 11/19/17 09:00 11/19/17 09:00 11/18/17 20:03 General appearance: age & developmentally appropriate, well-groomed, well- nourished - Musculoskeletal Gait: normal Station: relaxed Strength & Tone: normal for patient - Psychiatric Patient Orientation: Yes Person, Yes Time, Yes Place Level of alertness: Alert Behavior: calm, cooperative Psychomotor activity: Normal Eye Contact: Maintains Eye Contact Mood Description: Euthymic/stable Affect description: congruent with mood, full range Speech Volume: Normal Speech pattern: normal rate, normal rhythm, normal tone, fluent, spontaneous Language & Vocabulary: consistent with education Thought Process: Linear, Goal Oriented Thought Content: No Suicidal ideation, No Homicidal ideation, No Overt delusions Perceptual Disturbances: No Auditory hallucinations, No Visual hallucinations Attention Span Ability: Capable of Focused Attention Memory Description: Grossly Intact Patient Reliability: Reliable Historian Fund of knowledge: Yes abstraction ability, Yes aware of current events Intelligence Estimate: Average Judgment: Limited Insight: Partial Hospital Course Hospital course: Mr. Tinajero is a 52 year old male who presents for methamphetamine use D/O and substance induced mood disorder. The patient continues to reports suicidal ideation at this time. He reports that he has a chronic pain condition from cervicalgia and a plate in his neck. He said that the medicines for his depression were not working. He was followed by [facility] but in the past 24-48 hours may have used cocaine and certainly used methamphetamine. He was seen last night he was picking at his skin he had the idea that there are bugs he talked about bugs and psychiatric containers. Today he is seen and he gives some history and some background is not able to provide a full history. Therefore we had to rely on the chart. The patient says that he lives with his mother in [place] any seeking disability. We also looked at the state pharmacy report shows he is on gabapentin 800 mg 3 times a day. Pt noted that he feels much better. Pt denied any thoughts to harm himself or anyone else. Pt noted I really just needed to sleep through it. Pt denied any side effects to current medications. Pt noted he felt safe and comfortable for discharge home. Pt was in agreement with current treatment plan. Pt noted that he is doing alright today. Pt noted he slept pretty good last night. Pt noted his appetite is much better. Pt rated his depression a 5, on a scale of zero to ten with ten being the worst and zero being none. Pt rate his anxiety a 5, on the same scale. Pt noted both auditory and visiual hallucinations. Pt denied any current thoughts to harm anyone else. No TD noted, AIMS=0 Pt noted a significant reeducation in his depression and anxiety during his stay on In psychiatry. Pt noted that he slowly improved to the point that he was comfortable and safe to start programs. Pt noted he felt his medications were working well and denied any current side effects. Treatment team encouraged Pt to stay out of bed and try to find activities to do, verbalized understanding. pt reported that he felt safe on the unit and comfortable for discharge to [facility]. Pt Denied suicidal/homicidal ideations, denied any problems or concerns with medications or side effects. PT voiced progression towards treatment goals and was offered a copy of updated treatment plan completed during visit today. Denied any immediate needs or concerns. Pt throughout his stay on [facility] pscychiatry pt felt like his medications were working and felt comfortable being discharged on these medications. Pt was advised to take all medications as prescribed, follow up with all scheduled appointments and abstain from any alcohol or illicit substances. Pt was in agreement. Pt felt safe and comfortable to be discharged to his home [facility] to follow up with outpt/in mental health. Pt was very optimistic about his D/C. Pt felt safe and comfortable for D/C. The patient was educated primarily by verbal means about his diagnoses and their manifestations in his life. The option for treatment including group individual therapy programming was offered to him and the use of medications with all their potential risks, benefits, and side-effects were discussed with the pt at length. Pt was given the opportunity to ask questions and he participated in the treatment and planning process. Pt felt ready and eager to be discharged from the from the unit to start substance abuse programming at [facility]. Pt felt he was safe for this disposition. Pt was considered to be able to participate in informed consent and decision-making with respect to medical, legal and financial issues at the time of his discharge from the [address] [place] [address]. 1.Interval hx 2.Continue current medications 3.Review current labs 4.Pt had an opportunity to ask questions and discuss current treatment plan. 5.Supportive therapy was provided 6.Pt encouraged to consider group or individual therapy 7.Pt was in agreement with treatment plan. 8.Pt was educated on the risks benefits and side effects of current medications. 9.D/C pt to [facility]. 10. take all medications as prescribed, 11. abstain from any alcohol or illict substances. 12. Follow up with with all scheduled appointments. Time spent discussing smoking cessation with patient: 3 to 10 minutes Does patient wish to continue nicotine replacement upon disc: Yes - Time Spent with Patient Total time spent providing and/or coordinating discharge services: Greater than 30 minutes Assessment and Plan - Patient/Caregiver Discharge Instructions Additional Instructions: You are going into residential substance abuse treatment at [facility] on discharge from the hospital. Your mental health treatment needs will be addressed concurrently. - Follow up Plan Follow up with: [facility] [Outside] - 11/24/17 11:00 am (The above appointment is with Aster Zapata for outpatient mental health counseling.You will also see Vasu, a psychiatric provider, on December 08 2017 at 3:15pm. Please bring photo ID and insurance card to your appointments. Call at least 24 hours in advance for cancellations. * If you need transporattion to your appointment call 3 days ahead. ) Jamey Duffy MD [Partnered Physician] - 11/20/17 10:45 am (The above appointment is with Dr. Duffy for followup medical care.) Functional capacity at discharge: independent ambulation Overall status at discharge: Stable Disposition: Transfer Inpatient Rehab Fac Quality - Multiple Antipsychotics Patient discharged on 2 or more antipsychotic medications: Yes - Justification Documentation of: Recommended plan to taper to monotherapy (taper in place and documented, pt did benifit from two antipsychotics) Procedures - Procedures Procedures: Medication Management, Crisis Stabilization, Supportive Therapy, Group Therapy, Psychoeducational Therapy
== END 2017-11-19 12:35 | disposition home or self-care (01) | DRG 751 ==
LOC: EMEROO 17:57 → 1ANU 11-14 00:38 → SUATTDRO 11-14 00:38 → 1ANU 11-14 01:40
PROVIDERS: ADMIT General Practice; ATTEND Psychiatry & Neurology Forensic Psychiatry